=== PATIENT | female | born 1950 | race Caucasian/White ===

== ENCOUNTER → 2016-12-27 | Outpatient (CLI) | payer MEDICARE, OTHER ==
[~2016-12-27] MED LIST: AMLO10TA2 PO; ASPI-515 PO; CALCIUM PO; HYDR-3138 PO; LACT1CAP37 PO; LOSA50TA6 PO
[2016-12-27 14:03] LABS: PATH.CAST-FLAG NOT PRESENT; SPERM-FLAG NOT PRESENT; SRC-FLAG NOT PRESENT; XTAL-FLAG NOT PRESENT; YLC-FLAG NOT PRESENT
[2016-12-27 14:13] LABS: BLOOD UREA NITROGEN 17 mg/dL (7-18)
[2016-12-27 14:16] LABS: ASPARTATE AMINO TRANSFERASE 15 U/L (15-37)
[2016-12-27 14:17] LABS: HEMOGLOBIN 14.2 g/dL (11.7-16.4)
== END | disposition home or self-care (01) ==
LOC: STAR 12:39
PROVIDERS: ATTEND Orthopaedic Surgery Orthopaedic Surgery of the Spine
DX: Z01.818 Encounter for other preprocedural examination (principal); M48.06 Spinal stenosis, lumbar region; M96.1 Postlaminectomy syndrome, not elsewhere classified; M54.16 Radiculopathy, lumbar region
CPT/HCPCS: 36415; 71020; 80053; 81001; 85025; 93005

== ENCOUNTER 2017-01-02 08:01 | Inpatient (IN) | payer MEDICARE, OTHER ==
[~2017-01-02] VITALS: Ht 175.3 cm; Wt 82.0 kg
[~2017-01-02 08:01] MED LIST changes: +BACITRACIN OINT 500U/GM, 15 GM ONE; +BACITRACIN ZINC OINT 500U/GM, 0.9 GM ONE; +BUPIVACAINE/PF-EPI 0.25% 1:200K ONE; +THROMBIN 5,000 UNIT VIAL TP ONE
[2017-01-02] MEDS ORDERED: BUPIVACAINE/PF 0.5% ONE (08:42)
[2017-01-02] MEDS ORDERED: LACTATED RINGERS 1,000 ML IV SCH (08:42)
[2017-01-02 08:45] VITALS: BP 125/75
[2017-01-02] MEDS ORDERED: MIDAZOLAM 1 MG/ML, 2ML ONE ×2 (10:22→13:44)
[2017-01-02] MEDS ORDERED: FENTANYL PF 250 MCG/5ML ONE (10:22)
[2017-01-02] MEDS ORDERED: DEXAMETHASONE 4 MG/ML, 1ML ONE (11:22)
[2017-01-02] MEDS ORDERED: ONDANSETRON 2MG/ML, 2ML ONE (11:22)
[2017-01-02] MEDS ORDERED: PROPOFOL 10 MG/ML, 20ML ONE (11:22)
[2017-01-02] MEDS ORDERED: CEFAZOLIN 1,000 MG ONE (11:22)
[2017-01-02] MEDS ORDERED: ROCURONIUM 10 MG/ML ONE (11:22)
[2017-01-02] MEDS ORDERED: ONDANSETRON 2MG/ML, 2ML IVPush PRN ×2 (11:30→12:00)
[2017-01-02] MEDS: CEFAZOLIN PMX 1GM/50ML 50 ML IVPB SCH ×2 (11:30→20:39)
[2017-01-02] MEDS ORDERED: morphine SULFATE 10 MG/ML, 1ML IVPush PRN (11:30)
[2017-01-02] MEDS: D5%-0.9% NACL+KCL 20MEQ 1,000 ML IV SCH ×2 (11:30→23:15)
[2017-01-02] MEDS ORDERED: PHARMACY MAY ADJ FOR RENAL FX MC PRN (11:30)
[2017-01-02] MEDS ORDERED: METHOCARBAMOL 750 MG TABLET PO PRN (11:30)
[2017-01-02] MEDS ORDERED: PROMETHAZINE 25 MG/ML, 1ML IM PRN (11:30)
[2017-01-02] MEDS ORDERED: BISACODYL 10 MG SUPP PR PRN (11:30)
[2017-01-02] MEDS ORDERED: SENNA/DOCUSATE TABLET PO PRN (11:30)
[2017-01-02] MEDS ORDERED: DIPHENHYDRAMINE 50 MG/ML, 1ML IVPush PRN (11:30)
[2017-01-02] MEDS ORDERED: MAGNESIUM HYDROXIDE 8%, 30ML UDC PO PRN (11:30)
[2017-01-02] MEDS ORDERED: THROMBIN 5,000 UNIT VIAL TP ONE (11:41)
[2017-01-02] MEDS ORDERED: hydrALAzine 20 MG/ML, 1ML IV PRN (12:00)
[2017-01-02] MEDS ORDERED: ACETAMINOPHEN 325 MG TABLET PO PRN (12:00)
[2017-01-02] MEDS ORDERED: OXYcodone 5 MG/5 ML ORAL.SOL UDC PO PRN (12:00)
[2017-01-02] MEDS ORDERED: PROMETHAZINE 25 MG/ML, 1ML IV PRN (12:00)
[2017-01-02] MEDS ORDERED: LABETALOL 5MG/ML, 20ML IV PRN (12:00)
[2017-01-02] MEDS ORDERED: MEPERIDINE/PF 25MG/0.5ML IVPush PRN (12:00)
[2017-01-02] MEDS ORDERED: OXYcodone 5 MG/5 ML ORAL.SOL UDC ONE (13:17)
[2017-01-02] MEDS ORDERED: ACETAMINOPHEN 650 MG/20.3 ML UDC ONE (13:17)
[2017-01-02] MEDS ORDERED: FENTANYL PF 100 MCG/2ML ONE (13:17)
[2017-01-02] MEDS ORDERED: ACETAMINOPHEN 325 MG TABLET ONE (13:17)
[2017-01-02] MEDS: FENTANYL PF 100 MCG/2ML IV PRN ×2 (13:19→13:28)
[2017-01-02] MEDS ORDERED: HYDROmorphone 2 MG/ML, 1ML ONE (13:29)
[2017-01-02] MEDS: HYDROmorphone 1 MG/ML, 1ML IV PRN ×2 (13:33→13:55)
[2017-01-02] MEDS: MIDAZOLAM 1 MG/ML, 2ML IV PRN ×2 (13:46→14:01)
[2017-01-02 14:59] VITALS: BP 129/68
[2017-01-02] MEDS: OXYcodone/APAP 5/325MG TABLET PO PRN ×2 (17:57→23:14)
[2017-01-02 19:38] VITALS: BP 117/70
[2017-01-02 19:39] VITALS: BP 117/70
[2017-01-02] MEDS: LOSARTAN 50MG TABLET PO SCH (20:40)
[2017-01-03 02:52] VITALS: BP 126/63
[2017-01-03 02:55] VITALS: BP 126/63
[2017-01-03] MEDS: OXYcodone/APAP 5/325MG TABLET PO PRN ×3 (03:29→11:42)
[2017-01-03] MEDS ORDERED: CEFAZOLIN PMX 1GM/50ML 50 ML IV ONE (04:00)
[2017-01-03 06:51] VITALS: BP 134/72
[2017-01-03] MEDS: D5%-0.9% NACL+KCL 20MEQ 1,000 ML IV SCH (07:30)
[2017-01-03] MEDS: LOSARTAN 50MG TABLET PO SCH (08:03)
[2017-01-03] MEDS ORDERED: LACTOBACILLUS CHEW TABLET PO SCH (09:00)
[2017-01-03] MEDS ORDERED: AMLODIPINE 5 MG TABLET PO SCH (09:00)
[2017-01-03 11:00] VITALS: BP 113/59
[2017-01-03] MEDS ORDERED: PNEUMOCOCCAL 23 VACCINE IM-VACC ONE (11:00)
== END 2017-01-03 12:20 | disposition home or self-care (01) | DRG 460 ==
LOC: ORIP 08:01 → 4NOR 14:41 → DCLOUNGE 01-03 12:00
PROVIDERS: ADMIT Orthopaedic Surgery Orthopaedic Surgery of the Spine; ATTEND Orthopaedic Surgery Orthopaedic Surgery of the Spine
PROC: [UNRECOGNIZED PROCEDURE] (2017-01-02)
PROC: 0SB43ZZ Excision of Lumbosacral Disc, Percutaneous Approach (ICD-10-PCS; principal; 2017-01-02 10:00)
DX: M96.1 Postlaminectomy syndrome, not elsewhere classified (principal); M51.16 Intervertebral disc disorders with radiculopathy, lumbar region; M48.06 Spinal stenosis, lumbar region; Z23 Encounter for immunization
CPT/HCPCS: 36415; 72100; 85025; 90732; C1713; C1767; J0690; J1100; J1170; J2250; J2405; J2704; J3010; J3490; C1762; C1778; J2270; J3480; J7120